=== PATIENT | female | born 1995 ===

== ENCOUNTER 2016-12-14 12:16 | Emergency (ER) | payer OTHER ==
[2016-12-14 12:30] VITALS: BP 112/62
[2016-12-14 13:04] LABS: Bacteria,Urine 1+ /HPF (Negative); Bilirubin,Urine NEG (Negative); Blood,Urine NEG (Negative); Ketones,Urine NEG (Negative); Leukocyte Esterase,Urine NEG (Negative); Mucus,Urine 3+ /HPF; Nitrite,Urine NEG (Negative); Protein,Urine <15 mg/dL mg/dL (Negative); Urobilinogen,Urine < 2.0 mg/dL (<2.0)
[2016-12-14 13:41] LABS: Basophils % (Auto) 0.5 % (0.0-1.8); Eosinophils % (Auto) 1.8 % (0.0-4.3); Hematocrit 36.9 % (30.3-42.9); Hemoglobin 12.5 gm/dl (10.1-14.3); Mean Corpuscular HGB Conc 34 % (30-34); Mean Corpuscular Hemoglobin 33 pg (28-32); Mean Corpuscular Volume 96 fl (79-97); Platelet Count 264 K/mm3 (140-440); Red Blood Count 3.82 M/mm3 (3.65-5.03); Red Cell Distribution Width 12.5 % (13.2-15.2)
[2016-12-14 13:48] LABS: Anion Gap 16 mmol/L; BUN/Creatinine Ratio 13.33; Blood Urea Nitrogen 8 mg/dL (7-17); Calcium 9.5 mg/dL (8.4-10.2); Carbon Dioxide 25 mmol/L (22-30); Chloride 101.7 mmol/L (98-107); Glucose 69 mg/dL (65-100); Potassium 4.1 mmol/L (3.6-5.0); Sodium 139 mmol/L (137-145)
[2016-12-14] MEDS ORDERED: ZOFRAN ODT PO ONE (14:32)
--- NOTE | 2016-12-14 17:35 | Emergency Department Report ---
Entered by HARRIS WILD, acting as scribe for TYLER CEBALLOS PA. ED N/V/D HPI - General Chief complaint: Nausea/Vomiting/Diarrhea Stated complaint: VOMITING Time Seen by Provider: 12/14/16 13:15 Source: patient Mode of arrival: Ambulatory Limitations: No Limitations - History of Present Illness Initial comments: 21 y/o female with no significant PMHx presents to the ED c/o nausea and vomiting that began 1 week ago. Patient states she is able to tolerate eating soup and Sprite, but she denies being able to tolerate full meals. Reports 2 emesis episodes. Associated symptoms includes intermittent cramping and hematemesis x 1 day, but she denies burning mid-sternal pain, fever, chills, abdominal pain, nausea, vomiting, vaginal discharge, vaginal bleeding, dysuria, headache, dizziness, numbness, tingling, chest pain, and SOB. Denies any abdominal pain and hematemesis today. Reports she had a syncopal episode 1 week ago, which she was diagnosed with dehydration and told to drink lots of fluid. LMP 11/18/2016. NKDA. SOLO complaint: nausea, vomiting Onset/Timin -: week(s) Description of Vomiting: food contents, watery Associated Abdominal Pain: No Radiation: none Severity: mild Pain Scale: 0 Quality: cramping Consistency: constant Improves with: none Worsens with: eating Associated Symptoms: denies other symptoms, nausea/vomiting. denies: myalgias, chest pain, cough, diaphoresis, fever/chills, headaches, loss of appetite, malaise, rash, dysuria, shortness of breath, syncope, weakness - Related Data Previous Rx's Medication Instructions Recorded Last Taken Type Doxylamine/Pyridoxine HCl 1 each PO QHS #40 tablet. 12/14/16 Unknown Rx [John Joyce 10-10 mg Tablet] Nitrofurantoin [place]/M-Cryst 100 mg PO Q12HR #14 capsule 12/14/16 Unknown Rx [Macrobid CAP] Pnv95/Ferrous Fumarate/FA 1 each PO DAILY #40 tablet 12/14/16 Unknown Rx [ Formula Tablet] Allergies Allergy/AdvReac Type Severity Reaction Status Date / Time No Known Allergies Allergy Unverified 12/14/16 12:21 ED Review of Systems Comment: All other systems reviewed and negative Constitutional: denies: chills, fever Eyes: denies: eye pain, eye discharge, vision change ENT: denies: ear pain, throat pain Respiratory: denies: cough, orthopnea, shortness of breath, SOB with exertion, SOB at rest, stridor, wheezing Cardiovascular: denies: chest pain, palpitations, dyspnea on exertion, orthopnea , edema, syncope, paroxysmal nocturnal dyspnea Endocrine: no symptoms reported Gastrointestinal: nausea, vomiting. denies: abdominal pain, diarrhea, constipation, hematemesis, melena, hematochezia Genitourinary: denies: urgency, dysuria, discharge Musculoskeletal: denies: back pain, joint swelling, arthralgia Skin: denies: rash, lesions Neurological: denies: headache, weakness, paresthesias Psychiatric: denies: anxiety, depression Hematological/Lymphatic: denies: easy bleeding, easy bruising ED Past Medical Hx - Past Medical History Previous Medical History?: No - Surgical History Past Surgical History?: No - Family History Family history: no significant - Social History Smoking Status: Current Every Day Smoker Substance Use Type: None - Medications Home Medications: Home Medications Medication Instructions Recorded Confirmed Last Taken Type Doxylamine/Pyridoxine HCl 1 each PO QHS #40 tablet. 12/14/16 Unknown Rx [Diclegis Dr 10-10 mg Tablet] Nitrofurantoin [place]/M-Cryst 100 mg PO Q12HR #14 capsule 12/14/16 Unknown Rx [Macrobid CAP] Pnv95/Ferrous Fumarate/FA 1 each PO DAILY #40 tablet 12/14/16 Unknown Rx [ Formula Tablet] ED Physical Exam - General Limitations: No Limitations General appearance: alert, in no apparent distress - Head Head exam: Present: atraumatic, normocephalic - Eye Eye exam: Present: normal appearance, PERRL, EOMI Pupils: Present: normal accommodation - ENT ENT exam: Present: normal exam, mucous membranes moist, normal external ear exam - Neck Neck exam: Present: normal inspection, full ROM. Absent: tenderness, meningismus, lymphadenopathy - Respiratory Respiratory exam: Present: normal lung sounds bilaterally. Absent: respiratory distress, wheezes, rales, rhonchi, stridor, chest wall tenderness, accessory muscle use, decreased breath sounds - Cardiovascular Cardiovascular Exam: Present: regular rate, normal rhythm, normal heart sounds. Absent: systolic murmur, diastolic murmur - GI/Abdominal GI/Abdominal exam: Present: soft, normal bowel sounds. Absent: distended, tenderness, guarding, rebound, rigid - Extremities Exam Extremities exam: Present: normal inspection, full ROM, normal capillary refill - Back Exam Back exam: Present: normal inspection, full ROM. Absent: tenderness, CVA tenderness (R), CVA tenderness (L) - Neurological Exam Neurological exam: Present: alert, oriented X3, normal gait - Psychiatric Psychiatric exam: Present: normal affect, normal mood - Skin Skin exam: Present: warm, dry, intact. Absent: rash ED Course Vital Signs 12/14/16 12/14/16 12:22 13:45 Temperature 97.9 F 98.8 F Pulse Rate 82 72 Respiratory 18 18 Rate Blood Pressure 112/62 O2 Sat by Pulse 100 99 Oximetry ED Medical Decision Making - Lab Data Result diagrams: 12/14/16 13:18 12/14/16 13:18 Laboratory Last Values WBC 9.0 K/mm3 (4.5-11.0) 12/14/16 13:18 RBC 3.82 M/mm3 (3.65-5.03) 12/14/16 13:18 Hgb 12.5 gm/dl (10.1-14.3) 12/14/16 13:18 Hct 36.9 % (30.3-42.9) 12/14/16 13:18 MCV 96 fl (79-97) 12/14/16 13:18 MCH 33 pg (28-32) H 12/14/16 13:18 MCHC 34 % (30-34) 12/14/16 13:18 RDW 12.5 % (13.2-15.2) L 12/14/16 13:18 Plt Count 264 K/mm3 (140-440) 12/14/16 13:18 Lymph % (Auto) 26.9 % (13.4-35.0) 12/14/16 13:18 [place] % (Auto) 11.7 % (0.0-7.3) H 12/14/16 13:18 Eos % (Auto) 1.8 % (0.0-4.3) 12/14/16 13:18 Baso % (Auto) 0.5 % (0.0-1.8) 12/14/16 13:18 Lymph # 2.4 K/mm3 (1.2-5.4) 12/14/16 13:18 [place] # 1.0 K/mm3 (0.0-0.8) H 12/14/16 13:18 Eos # 0.2 K/mm3 (0.0-0.4) 12/14/16 13:18 Baso # 0.0 K/mm3 (0.0-0.1) 12/14/16 13:18 Seg Neutrophils % 59.1 % (40.0-70.0) 12/14/16 13:18 Seg Neutrophils # 5.3 K/mm3 (1.8-7.7) 12/14/16 13:18 Sodium 139 mmol/L (137-145) 12/14/16 13:18 Potassium 4.1 mmol/L (3.6-5.0) 12/14/16 13:18 Chloride 101.7 mmol/L (98-107) 12/14/16 13:18 Carbon Dioxide 25 mmol/L (22-30) 12/14/16 13:18 Anion Gap 16 mmol/L 12/14/16 13:18 BUN 8 mg/dL (7-17) 12/14/16 13:18 Creatinine 0.6 mg/dL (0.7-1.2) L 12/14/16 13:18 Estimated GFR > 60 ml/min 12/14/16 13:18 BUN/Creatinine Ratio 13.33 % 12/14/16 13:18 Glucose 69 mg/dL (65-100) 12/14/16 13:18 Calcium 9.5 mg/dL (8.4-10.2) 12/14/16 13:18 HCG, Qual Positive (Negative) 12/14/16 13:18 HCG, Quant 77904 mIU/mL (0-4) H 12/14/16 13:18 Urine Color Yellow (Yellow) 12/14/16 Unknown Urine Turbidity Clear (Clear) 12/14/16 Unknown Urine pH 6.0 (5.0-7.0) 12/14/16 Unknown Ur Specific [place] 1.024 (1.003-1.030) 12/14/16 Unknown Urine Protein <15 mg/dl mg/dL (Negative) 12/14/16 Unknown Urine Glucose (UA) Neg mg/dL (Negative) 12/14/16 Unknown Urine Ketones Neg mg/dL (Negative) 12/14/16 Unknown Urine Blood Neg (Negative) 12/14/16 Unknown Urine Nitrite Neg (Negative) 12/14/16 Unknown Urine Bilirubin Neg (Negative) 12/14/16 Unknown Urine Urobilinogen < 2.0 mg/dL (<2.0) 12/14/16 Unknown Ur Leukocyte Esterase Neg (Negative) 12/14/16 Unknown Urine WBC (Auto) 1.0 /HPF (0.0-6.0) 12/14/16 Unknown Urine RBC (Auto) 4.0 /HPF (0.0-6.0) 12/14/16 Unknown U Epithel Cells (Auto) 3.0 /HPF (0-13.0) 12/14/16 Unknown Urine Bacteria (Auto) 1+ /HPF (Negative) 12/14/16 Unknown Urine Mucus 3+ /HPF 12/14/16 Unknown - Medical Decision Making 21 year-old female presents with test positive/UTI ED course: CBC, HCG qualitative, BMP, and UA/UPT ordered for patient Patient had no episodes of vomiting in the ED stay. Zofran was given in ED test positive Vital signs stable patient is in no acute or respiratory distress. Discussed findings with patient. Discussed nausea treatment in ED with Zofran Discussed with patient to continue drinking lots of fluids. Discussed daily vitamins. Discuss referral to see [facility] for follow-up as soon as possible Discussed with the patient to return to the ED if symptoms return or worsen. Patient states understanding and will follow instructions. Pt verbally states understanding and will comply to follow up. ED Disposition Clinical Impression: Nausea and vomiting during Qualifiers: Weeks of gestation: 8 weeks Qualified Code(s): Z3A.08 - 8 weeks gestation of Disposition: DC-01 TO HOME OR SELFCARE Is pt being admited?: No Does the pt Need Aspirin: No Condition: Stable Instructions: (ED), Morning Sickness (ED), Urinary Tract Infection in Women (ED) Additional Instructions: Make sure you increased hydration drink 8-10 glasses per day. Avoid medications such as Motrin. eat more fruits and vegetables. Prescriptions: Doxylamine/Pyridoxine HCl [John Joyce 10-10 mg Tablet] 1 each PO QHS #40 tablet. Nitrofurantoin [place]/M-Cryst [Macrobid CAP] 100 mg PO Q12HR #14 capsule Pnv95/Ferrous Fumarate/FA [ Formula Tablet] 1 each PO DAILY #40 tablet Referrals: PRIMARY CARE, [Primary Care Provider] - 3-5 Days PJ MANRIQUEZ MD [Referring] - 3-5 Days ABELARDO HELMS MD [Staff Physician] - 3-5 Days AMY HELMS MD [Referring] - 3-5 Days Forms: Accompanied Note, Work/School Release Form(ED) Time of Disposition: 15:45 This documentation as recorded by the TORRI mckeon JASMINE,accurately reflects the service I personally performed and the decisions made by ,TYLER CEBALLOS PA.
== END 2016-12-14 16:01 | disposition home or self-care (01) ==
LOC: ED 12:16
DX: O21.0 Mild hyperemesis gravidarum (principal); O99.331 Smoking (tobacco) complicating pregnancy, first trimester; Z3A.08 8 weeks gestation of pregnancy
CPT/HCPCS: 36415; 80048; 81001; 84702; 84703; 85025; 99283; Q0162